=== PATIENT | male | born 1980 | race African-American/Black ===

== ENCOUNTER 2017-01-26 17:48 | Emergency (ER) | payer SELFPAY ==
[~2017-01-26] VITALS: Ht 180.3 cm; Wt 88.0 kg
[2017-01-26 17:52] VITALS: BP 105/46
[2017-01-26] MEDS ORDERED: KETOROLAC 60MG/2ML VIAL IM ONE (21:00)
== END 2017-01-26 21:49 | disposition home or self-care (01) ==
LOC: ER 18:41
DX: M25.512 Pain in left shoulder (principal); D57.1 Sickle-cell disease without crisis; Z87.442 Personal history of urinary calculi
CPT/HCPCS: 73030; 96372; 99284; J1885; A4565

== ENCOUNTER 2021-03-14 15:55 | Emergency (ER) | payer OTHER ==
[~2021-03-14] VITALS: Ht 188 cm; Wt 98.0 kg
[2021-03-14] MEDS ORDERED: SODIUM CHLORIDE 0.9% 1,000 ML IV ONE (16:15)
[2021-03-14 16:40] LABS: BASOPHILS % 0.5 % (0.0-2.0); EOSINOPHILS % 1.6 % (0.0-5.0); HEMATOCRIT. 28.9 % (42.0-52.0); HEMOGLOBIN. 9.7 g/dL (14.0-18.0); LYMPHOCYTES % 20.6 % (20.0-50.0); MEAN CORPUSCULAR HEMOGLOBIN 25.3 pg (28.0-32.0); MEAN CORPUSCULAR VOLUME 75.1 fL (80.0-94.0); MEAN PLATELET VOLUME 8.1 fl (7.4-10.4); MONOCYTES % 8.4 % (2.0-8.0); NEUTROPHILS % 68.9 % (40.0-76.0); PLATELET 77 x1000/uL (130-400); RED BLOOD CELL COUNT 3.84 mill/uL (4.7-6.1); RED CELL DISTRIBUTION WIDTH 22.1 % (11.6-14.6)
[2021-03-14 16:47] LABS: CHLORIDE 108 mEq/L (98-107)
[2021-03-14] MEDS ORDERED: ACETAMINOPHEN 325MG TABLET PO ONE (17:00)
[2021-03-14] MEDS ORDERED: METOCLOPRAMIDE HCL 10MG/2ML VIAL IV ONE (17:00)
[2021-03-14 17:29] LABS: PLATELET ESTIMATE DECREASED
[2021-03-14] MEDS ORDERED: IOHEXOL-350 100 ML BOTTLE ONE (18:08)
[2021-03-14] MEDS ORDERED: METO-293 MT (18:50)
[2021-03-14 19:27] VITALS: BP 105/59
== END 2021-03-14 19:28 | disposition home or self-care (01) ==
LOC: ER 15:55
DX: R42 Dizziness and giddiness (principal); D64.9 Anemia, unspecified; Z13.9 Encounter for screening, unspecified; Z90.49 Acquired absence of other specified parts of digestive tract
CPT/HCPCS: 36415; 70496; 70498; 80053; 84484; 85025; 93005; 96361; 96374; 99285; J2765; J7030; Q9967

== ENCOUNTER 2022-07-21 04:59 | Inpatient (IN) | payer OTHER ==
[~2022-07-21] VITALS: Ht 190.5 cm; Wt 102.6 kg
[~2022-07-21 04:59] MED LIST: METO-293 MT
[2022-07-21] MEDS ORDERED: ONDANSETRON HCL 4MG/2ML INJ IV STA (05:18)
[2022-07-21] MEDS ORDERED: SODIUM CHLORIDE 0.9% 1,000 ML IV ONE ×3 (05:30→07:30)
[2022-07-21] MEDS ORDERED: FENTANYL CITRATE/PF 50MCG/ML 2ML VIAL IV ONE ×2 (05:30→06:00)
[2022-07-21 06:00] LABS: BASOPHILS % 0.5 % (0.0-2.0); EOSINOPHILS % 4.2 % (0.0-5.0); LYMPHOCYTES % 40.6 % (20.0-50.0); MEAN CORPUSCULAR HEMOGLOBIN 24.7 pg (28.0-32.0); MEAN CORPUSCULAR VOLUME 74.6 fL (80.0-94.0); MEAN PLATELET VOLUME 8.5 fl (7.4-10.4); MONOCYTES % 10.1 % (2.0-8.0); NEUTROPHILS % 44.6 % (40.0-76.0); PLATELET 131 x1000/uL (130-400); RED BLOOD CELL COUNT 4.02 mill/uL (4.7-6.1); RED CELL DISTRIBUTION WIDTH 23.1 % (11.6-14.6)
[2022-07-21] MEDS ORDERED: LORAZEPAM 2MG/ML CPJ IV ONE (06:00)
[2022-07-21] MEDS ORDERED: ONDANSETRON HCL 4MG/2ML INJ IV ONE (06:00)
[2022-07-21 06:07] LABS: PROTHROMBIN TIME 10.4 sec (9.6-11.0)
[2022-07-21] MEDS ORDERED: PIPERACILLIN/TAZOBACTAM 3.375GM/50ML PREMIX IV NR (06:15)
[2022-07-21] MEDS ORDERED: MORPHINE SULFATE 4 MG/ML CPJ (NOT FOR IM USE) IV ONE ×2 (06:15→06:30)
[2022-07-21 06:17] LABS: CHLORIDE 109 mEq/L (98-107)
[2022-07-21 06:27] LABS: ETHANOL BLOOD < 10 mg/dL
[2022-07-21] MEDS ORDERED: IOHEXOL-300 100 ML BOTTLE ONE (08:24)
[2022-07-21 09:24] LABS: PLATELET ESTIMATE NORMAL
[2022-07-21 12:00] VITALS: BP 111/52
[2022-07-21 12:22] VITALS: BP 113/56
[2022-07-21 14:00] VITALS: BP 110/52
[2022-07-21] MEDS ORDERED: ONDANSETRON HCL 4MG/2ML INJ IV PRN (14:00)
[2022-07-21] MEDS ORDERED: NALOXONE HCL 0.4MG/ML VIAL IV PRN (14:15)
[2022-07-21] MEDS: DEXT 5%/0.45% NACL 1000ML 1,000 ML IV SCH (14:41)
[2022-07-21] MEDS: MORPHINE SULFATE 2 MG/ML CPJ (NOT FOR IM USE) IV PRN ×2 (14:44→19:21)
[2022-07-21 16:00] VITALS: BP 114/50
[2022-07-21 20:00] VITALS: BP 115/53
[2022-07-22] VITALS: BP 123/61
[2022-07-22] MEDS: DEXT 5%/0.45% NACL 1000ML 1,000 ML IV SCH (03:30)
[2022-07-22 04:00] VITALS: BP 116/73
[2022-07-22 08:00] VITALS: BP 122/58
[2022-07-22 08:30] LABS: CLARITY URINE CLEAR (CLEAR); COLOR URINE YELLOW (YELLOW); KETONES URINE NEGATIVE (NEGATIVE); LEUKOCYTE ESTERASE URINE TRACE (NEGATIVE); NITRITE URINE NEGATIVE (NEGATIVE); OCCULT BLOOD URINE NEGATIVE (NEGATIVE); PROTEIN URINE NEGATIVE (NEGATIVE); UROBILINOGEN URINE 0.2 E.U./dL (0.2-1.0)
[2022-07-22 08:40] LABS: BASOPHILS % 0.3 % (0.0-2.0); HEMATOCRIT. 26.5 % (42.0-52.0); HEMOGLOBIN. 8.8 g/dL (14.0-18.0); LYMPHOCYTES % 25.6 % (20.0-50.0); MEAN CORPUSCULAR HEMOGLOBIN 24.8 pg (28.0-32.0); MEAN CORPUSCULAR VOLUME 74.3 fL (80.0-94.0); MEAN PLATELET VOLUME 8.2 fl (7.4-10.4); MONOCYTES % 10.9 % (2.0-8.0); NEUTROPHILS % 59.2 % (40.0-76.0); PLATELET 85 x1000/uL (130-400); RED BLOOD CELL COUNT 3.57 mill/uL (4.7-6.1); RED CELL DISTRIBUTION WIDTH 23.3 % (11.6-14.6)
[2022-07-22 08:50] LABS: CHLORIDE 106 mEq/L (98-107)
[2022-07-22] MEDS ORDERED: PANTOPRAZOLE SODIUM 40 MG/VIAL IV SCH (09:00)
[2022-07-22 09:12] LABS: *AMPHETAMINES SCREEN URINE NEGATIVE (NEGATIVE); *BARBITURATES SCREEN URINE NEGATIVE (NEGATIVE); *BENZODIAZEPINES SCREEN URINE NEGATIVE (NEGATIVE); *COCAINE SCREEN URINE NEGATIVE (NEGATIVE); CANNABINOID URINE SCREEN PRESUMTIVE POSITIVE (NEGATIVE); METHADONE URINE SCREEN NEGATIVE (NEGATIVE); OPIATES URINE SCREEN PRESUMTIVE POSITIVE (NEGATIVE); PHENCYCLIDINE URINE SCREEN NEGATIVE (NEGATIVE)
[2022-07-22 12:01] VITALS: BP 125/52
[2022-07-22 14:24] VITALS: BP 122/58
== END 2022-07-22 14:35 | disposition home or self-care (01) | DRG 254 ==
LOC: ER 04:59 → ENRESERV 11:44 → ER 11:57 → EDSTATUS 13:10 → 3WST 13:13
PROVIDERS: ADMIT Internal Medicine; ATTEND Student in an Organized Health Care Education/Training Program
DX: K40.90 Unilateral inguinal hernia, without obstruction or gangrene, not specified as recurrent (principal); K56.609 Unspecified intestinal obstruction, unspecified as to partial versus complete obstruction; N50.82 Scrotal pain; Z20.822 Contact with and (suspected) exposure to COVID-19; Z87.442 Personal history of urinary calculi
CPT/HCPCS: 36415; 74177; 76870; 80048; 80053; 80305; 80320; 81003; 83605; 85025; 86850; 86900; 87426; 93976; 99291; C9113; C9803; J2060; J2270; J2405; J2543; J3010; J7030; Q9967; G0480